=== PATIENT | female | born 1975 | race Caucasian/White ===

== ENCOUNTER → 2019-02-23 | Outpatient (CLI) | payer OTHER ==
--- NOTE | 2019-02-28 08:19 | RAD ---
EXAM DESCRIPTION: Toes,Left CLINICAL HISTORY: 43 years Female, LEFT 2nd TOE PAIN COMPARISON: None. FINDINGS: 2 views of the left-sided toes show no acute fracture or malalignment. No radiopaque foreign body or soft tissue gas. Mild degenerative changes involve the second DIP joint. IMPRESSION: Mild degenerative changes without acute left toe abnormality. Electronically signed by: Dominic Woods MD 02/28/2019 8:17 AM [facility]
== END ==
LOC: RAD 14:14
PROVIDERS: ATTEND Nurse Practitioner Family
DX: M19.072 Primary osteoarthritis, left ankle and foot (principal)